=== PATIENT | male | born 1955 | race Caucasian/White ===

== ENCOUNTER 2019-04-17 12:50 | Outpatient (CLI) | payer MEDICARE | END 2019-04-17 23:59 | disposition home or self-care (01) | LOC: VAS 12:50 | PROVIDERS: ATTEND Family Medicine | DX: M79.661 Pain in right lower leg (principal) | CPT/HCPCS: 93971 ==

== ENCOUNTER 2019-11-29 14:51 | Emergency (ER) | payer MEDICARE ==
[~2019-11-29] VITALS: Ht 185.4 cm; Wt 101.0 kg
[2019-11-29] MEDS ORDERED: ringers solution, lacted 1,000 ML IV ONE (16:00)
[2019-11-29 16:30] LABS: BASOPHILS % (AUTO) 0.8 % (0-1); EOSINOPHILS # (AUTO) 0.2 X10'3 (0-0.9); HEMATOCRIT 44.4 % (42.0-52.0); HEMOGLOBIN 15.3 g/dl (14.0-17.9); LYMPHOCYTES # (AUTO) 1.2 X10'3 (1.1-4.8); LYMPHOCYTES % (AUTO) 18.6 % (21-51); MEAN CORPUSCULAR HEMOGLOBIN 30.7 PG (27.0-31.0); MEAN CORPUSCULAR HGB CONC 34.6 g/dL (33.0-36.5); MEAN CORPUSCULAR VOLUME 88.8 FL (78-98); MEAN PLATELET VOLUME 7.8 FL (7.4-10.4); MONOCYTES # (AUTO) 0.5 X10'3 (0-0.9); MONOCYTES % (AUTO) 7.3 % (2-12); NEUTROPHILS # (AUTO) 4.4 X10'3 (1.8-7.7); NEUTROPHILS % (AUTO) 70.3 % (42-75); PLATELET COUNT 208 X10'3 (140-440); RED CELL DISTRIBUTION WIDTH 14.2 % (11.5-14.5); WHITE BLOOD COUNT 6.3 X10'3 (4.5-11.0)
[2019-11-29 16:48] LABS: ALANINE AMINOTRANSFERASE 42 U/L (12-78); ALBUMIN 3.6 G/DL (3.4-5.0); ALBUMIN/GLOBULIN RATIO 1.2 (1.1-1.5); ALKALINE PHOSPHATASE 71 IU/L (46-116); ANION GAP 8 (8-16); ASPARTATE AMINO TRANSFERASE 18 U/L (10-37); BILIRUBIN,TOTAL 0.4 MG/DL (0.1-1.0); BLOOD UREA NITROGEN 27 MG/DL (7-18); BUN/CREATININE RATIO 36.5 (5.4-32.0); CALCIUM 8.3 MG/DL (8.5-10.1); CHLORIDE 106 MMOL/L (99-107); CREATININE 0.74 MG/DL (0.60-1.10); GLUCOSE 99 MG/DL (70-104); POTASSIUM 4.2 MMOL/L (3.5-5.1); SODIUM 141 MMOL/L (135-145); TOTAL CARBON DIOXIDE 27.3 MMOL/L (24-32); TOTAL PROTEIN 6.7 G/DL (6.4-8.2); TROPONIN I < 0.04 NG/ML (0.0-0.05); eGFR > 90 ML/MIN
[2019-11-29 17:25] VITALS: BP 123/74
--- NOTE | 2019-11-29 17:59 | NUR ---
PT AMBULATED TO THE BR WITHOUT DIFFICULITY. STEADY GAIT
== END 2019-11-29 17:59 | disposition home or self-care (01) ==
LOC: ER 14:53
DX: E86.0 Dehydration (principal); R42 Dizziness and giddiness; R55 Syncope and collapse; E78.00 Pure hypercholesterolemia, unspecified; I10 Essential (primary) hypertension; G89.29 Other chronic pain; Z98.890 Other specified postprocedural states; Z88.5 Allergy status to narcotic agent
CPT/HCPCS: 36415; 71046; 80053; 84484; 85025; 93005; 96360; 99284; J7030; J7120

== ENCOUNTER 2024-08-25 05:51 | Day surgery (SDC) | payer MEDICARE, OTHER ==
[2024-08-18 11:24] LABS: BASOPHILS % (AUTO) 0.6 % (0-1); EOSINOPHILS # (AUTO) 0.2 X10'3 (0-0.9); EOSINOPHILS % (AUTO) 3.7 % (0-6); HEMOGLOBIN 16.1 g/dl (14.0-17.9); LYMPHOCYTES # (AUTO) 1.3 X10'3 (1.1-4.8); LYMPHOCYTES % (AUTO) 19.5 % (21-51); MEAN CORPUSCULAR HEMOGLOBIN 30.5 PG (27.0-31.0); MEAN CORPUSCULAR HGB CONC 34.2 g/dL (33.0-36.5); MEAN CORPUSCULAR VOLUME 89.2 FL (78-98); MEAN PLATELET VOLUME 7.9 FL (7.4-10.4); MONOCYTES # (AUTO) 0.4 X10'3 (0-0.9); MONOCYTES % (AUTO) 6.2 % (2-12); NEUTROPHILS # (AUTO) 4.6 X10'3 (1.8-7.7); PLATELET COUNT 199 X10'3 (140-440); RED BLOOD COUNT 5.26 X10'6 (4.70-6.10); RED CELL DISTRIBUTION WIDTH 14.5 % (11.5-14.5); WHITE BLOOD COUNT 6.6 X10'3 (4.5-11.0)
[2024-08-18 11:40] LABS: ALANINE AMINOTRANSFERASE 62 U/L (12-78); ALBUMIN 3.4 G/DL (3.4-5.0); ALBUMIN/GLOBULIN RATIO 0.9 (1.1-1.5); ALKALINE PHOSPHATASE 81 IU/L (46-116); ANION GAP 6 (8-16); ASPARTATE AMINO TRANSFERASE 39 U/L (10-37); BILIRUBIN,TOTAL 0.5 MG/DL (0.1-1.0); BLOOD UREA NITROGEN 20 MG/DL (7-18); BUN/CREATININE RATIO 24.7 (10.0-20.0); CALCIUM 8.3 MG/DL (8.5-10.1); CHLORIDE 106 MMOL/L (99-107); CREATININE 0.81 MG/DL (0.60-1.10); GLUCOSE 103 MG/DL (70-104); POTASSIUM 3.8 MMOL/L (3.5-5.1); SODIUM 140 MMOL/L (135-145); TOTAL CARBON DIOXIDE 28.4 MMOL/L (24-32); eGFR > 90 ML/MIN
[2024-08-24 08:41] VITALS: BP 130/73; PULSE 66; RESP 16; O2SAT 96
[~2024-08-25] VITALS: Ht 185.4 cm; Wt 100.0 kg
[~2024-08-25 05:51] MED LIST: AMLO5TAB16 PO; CYCL-1 PO; IBUP-1985 PO; LOSA100T58 PO; MELATONIN; VITAMIN B COMPLEX; VITAMIN C; VITAMIN D; VOLTAREN; ZINC
[2024-08-25] MEDS: famotidine 20mg tablet PO ONE (06:48)
[2024-08-25] MEDS: ringers solution, lacted 1,000 ML IV SCH (06:49)
[2024-08-25] MEDS ORDERED: cefazolin 2gm/D5W 100mL 100 ML IV ONE (08:00)
[2024-08-25] MEDS ORDERED: midazolam 1 mg/ML 2ml injection ONE (08:15)
[2024-08-25] MEDS ORDERED: fentaNYL/PF 50MCG/1 ML 2ML syringe ONE (08:16)
[2024-08-25] MEDS ORDERED: LIDOcaine 2% (20mg/ml) 5ml vial ONE (08:23)
[2024-08-25] MEDS: BUPIVAcaine/PF 2.5mg/ml (0.25%) 10ml vial ONE (08:27)
[2024-08-25] MEDS: LIDOcaine 2% (20mg/ml) 5ml vial ONE (08:28)
[2024-08-25 08:30] VITALS: BP 146/71; PULSE 65; RESP 16; TEMP 98.3; O2SAT 96
[2024-08-25 08:50] VITALS: BP 153/79; PULSE 61; RESP 15; O2SAT 92
[2024-08-25 09:00] VITALS: BP 137/77; PULSE 59; RESP 19; O2SAT 92
[2024-08-25 09:10] VITALS: BP 123/88; PULSE 62; RESP 12; O2SAT 95
== END 2024-08-25 09:16 | disposition home or self-care (01) ==
LOC: PAS 05:51
PROVIDERS: ATTEND Orthopaedic Surgery Hand Surgery
DX: G56.01 Carpal tunnel syndrome, right upper limb (principal); M65.331 Trigger finger, right middle finger; I10 Essential (primary) hypertension; J44.9 Chronic obstructive pulmonary disease, unspecified; Z87.891 Personal history of nicotine dependence; Z79.1 Long term (current) use of non-steroidal anti-inflammatories (NSAID); Z79.899 Other long term (current) drug therapy; Z98.890 Other specified postprocedural states; Z88.5 Allergy status to narcotic agent; Z88.8 Allergy status to other drugs, medicaments and biological substances
CPT/HCPCS: 36415; 80053; 82948; 85025; A4215; A6449; J0690; J2250; J3010; J3490; J7120

== ENCOUNTER 2024-12-19 05:41 | Outpatient (CLI) | payer MEDICARE, OTHER | END 2024-12-19 23:59 | disposition home or self-care (01) | LOC: MRI02 05:41 | PROVIDERS: ATTEND Physician Assistant | DX: M51.26 Other intervertebral disc displacement, lumbar region (principal); M47.817 Spondylosis without myelopathy or radiculopathy, lumbosacral region; M48.07 Spinal stenosis, lumbosacral region | CPT/HCPCS: 72148 ==

== ENCOUNTER 2025-02-12 10:04 | Outpatient (CLI) | payer MEDICARE, OTHER | END 2025-02-12 23:59 | disposition home or self-care (01) | LOC: RAD 10:04 | PROVIDERS: ATTEND Physician Assistant | DX: M79.671 Pain in right foot (principal) | CPT/HCPCS: 73630 ==